=== PATIENT | female | born 1995 ===

== ENCOUNTER 2020-08-26 15:38 | Emergency (ER) | payer OTHER ==
[2020-08-26 16:25] VITALS: BP 110/76
[2020-08-26] MEDS ORDERED: HYDROcodone/ACETAMINOPHEN 5-325 MG TAB PO STA (18:41)
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
[2020-08-26] MEDS ORDERED: KETOROLAC 60 MG/2 ML INJ IM STA (22:08)
== END 2020-08-26 22:45 | disposition home or self-care (01) ==
LOC: ED 15:38
DX: M25.561 Pain in right knee (principal); Z79.899 Other long term (current) drug therapy; V49.59XA Passenger injured in collision with other motor vehicles in traffic accident, initial encounter; Y93.89 Activity, other specified; Y92.488 Other paved roadways as the place of occurrence of the external cause; Y99.8 Other external cause status
CPT/HCPCS: 29505; 73560; 96372; 99284; J1885